=== PATIENT | male | born 2000 | race Caucasian/White ===

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

== ENCOUNTER 2020-04-26 14:05 | Outpatient (CLI) | payer OTHER, SELFPAY ==
--- NOTE | 2020-04-26 14:00 | DI.RAD_ITS ---
EXAM: XR FOOT LT LIMITED CLINICAL HISTORY: f/u L foot cyst TECHNIQUE: COMPARISON: No exams were available for comparison FINDINGS: Two views were obtained. Bony alignment appears within normal limits. No focal bony abnormality see n. Question mild soft tissue swelling of the dorsum of the foot, please correlate clinically. IMPRESSION:
== END 2020-04-26 14:25 ==
PROVIDERS: PCP Pediatrics; Referring Provider Pediatrics; Visit Provider Student in an Organized Health Care Education/Training Program
DX: M67.472 Ganglion, left ankle and foot (principal)
CPT/HCPCS: 73620

== ENCOUNTER 2020-08-23 02:40 | Outpatient (CLI) | payer OTHER, SELFPAY ==
[2020-08-25 05:07] LABS: Patient Race White; SARS-CoV-2 RNA Undetected (Undetected); SARS-CoV-2 Specimen Source Nasal
== END 2020-08-23 03:00 ==
PROVIDERS: PCP Pediatrics; Visit Provider Pediatrics
DX: Z20.828 Contact with and (suspected) exposure to other viral communicable diseases (principal)
CPT/HCPCS: U0003

== ENCOUNTER 2020-10-01 03:34 | Outpatient (CLI) | payer OTHER, SELFPAY ==
[2020-10-02 15:33] LABS: COVID-19 RT-PCR UVMMC Result Negative (Negative)
== END 2020-10-01 03:54 ==
PROVIDERS: PCP Pediatrics; Visit Provider Student in an Organized Health Care Education/Training Program
DX: Z11.52 Encounter for screening for COVID-19 (principal); Z01.818 Encounter for other preprocedural examination
CPT/HCPCS: U0003

== ENCOUNTER 2020-10-05 06:07 | Day surgery (SDC) | payer OTHER, SELFPAY ==
[2020-10-05] VITALS (7 sets, daily range): BP systolic 87–143; BP diastolic 32–95; PULSE 72–97; RESP 17–19; TEMP 36.3–37.1; O2SAT 97–100
--- NOTE | 2020-10-05 07:11 | HPE_ITS ---
Date of service: 10/05/20 Time of Service: 07:11 Assessment and Plan Assessment and plan (1) Mass of left foot: Status: Acute Assessment and plan: Roshan is a 20-year-old who has a large mass of the dorsum of the left foot. Is benign in all aspects except for its large size. Given large size, impedance with shoe wear, and continued growth, recommend excisional biopsy. Reviewed the technical details of this with Roshan. I also reviewed the risk to include, infection, stiffness, damage to nerves and vessels, damage to muscles and tendons. There is also the chance of recurrence although that exact likelihood is unknown until we have formal diagnosis. There is also a chance to return to the OR for repeat procedures based on the mass identification. After a review of all this, Roshan elected to proceed. History of Present Illness History of Present Illness Chief Complaint: Left Foot Mass Narrative: Roshan is a 20-year-old who is having no back to the left foot remain years. He thinks this started he was 4 to 5 years old and pediatric. He saw him in the office the summer where a superficial large mass was appreciated on the dorsum of the left foot. Given its size, I recommended excisional biopsy. He does report that he thinks has gotten larger since the last visit. Otherwise it has not changed since the last appointment. He denies any skin lesions skin defects or discoloration. He denies any weight loss, fever, or chills. He denies any other masses elsewhere on his body. He has had no recent sick contacts. COVID- 19 negative. He denies chest pain shortness of breath. Review of Systems All systems reviewed & are unremarkable except as noted in HPI and below PFSH Medical History Appendicitis, acute (~04/2015) ruptured with abscess formation and drain placement and antibiotic rx GERD (gastroesophageal reflux disease) Raynauds disease eval and told not raynaud's -related to light bite injury Surgical History Appendectomy with rupture and postoperative infection adn IV antibitics and percutaneous drain placemtn Tonsillectomy and adenoidectomy Family History Mother Healthy adult Father Essential hypertension Hyperlipidemia Other No problems noted. Social History Smoking/Tobacco Use Status: Never Smoking risk assessment performed?: Yes Alcohol Intake: never Drug use: Never Substance use type: does not use Do you feel safe at home: Yes Do you feel safe in your relationship?: Yes Meds Home Medications and Allergies Home Medications Medication Instructions Recorded Confirmed Type ibuprofen 600 mg tablet 600 mg PO TID #60 tab 08/14/18 10/05/20 Rx Allergies Allergy/AdvReac Type Severity Reaction Status Date / Time No Known Allergies Allergy Verified 10/05/20 06:32 Exam Const General: cooperative, healthy appearing, comfortable and no acute distress Nutritional Appearance: overweight Orientation: alert, awake and oriented x3 Resp Auscultation: clear to auscultation bilaterally Cardio Rate: regular rate Rhythm: regular rhythm Extrem Other: There is a large mass noted to the dorsum of the left foot. The borders are well-defined. It is highly mobile and does not move with underlying extensor tendon. Light touch over the superficial and deep peroneal nerve and tibial nerve is intact. No overlying skin changes. No redness or irritation. No skin discoloration. Full range of motion of the ankle and toes Results Last Vital Signs Temp 37.1 C 10/05/20 06:15 Pulse 97 H 10/05/20 06:15 Resp 17 10/05/20 06:15 BP 143/95 H 10/05/20 06:15 Pulse Ox 100 10/05/20 06:15
[2020-10-05] MEDS: Lactated Ringers 1,000 ML 30 ML IV (07:20)
[2020-10-05] MEDS: ceFAZolin 2 GM/50 ML BAG IVPB (07:30)
--- NOTE | 2020-10-05 07:32 | W.PM.DSUDISC ---
Discharge Plan Disposition Patient Disposition: HOME Condition: Good Discharge Details Reason For Visit: Left Foot Ganglion Cyst removal Attending Provider: Carmelo Thomas Primary Care Provider: Hussein Godwin Home Meds and New Rx's Prescriptions: New ibuprofen 600 mg tablet 600 mg PO TID Qty: 90 RF: 0 hydrocodone-acetaminophen 5-325 mg tablet 1 tab PO Q6H PRNQty: 5 RF: 0 acetaminophen 500 mg tablet 500 mg PO Q6H PRN PRN (Reason: pain) Qty: 40 RF: 3 Discontinued ibuprofen 600 mg tablet 600 mg PO TID Qty: 60 RF: 0 Discharge Instructions Additional Instructions: Activity: You may weight bear as tolerated. You should keep the leg elevated as much as possible. You may wiggle your toes and move your hip and knee. You should wear the post-op shoe when you are up and mobilizing, but may remove it when not. You may apply ice on top of the foot. Dressings: You should keep the initial dressing on for at least 3 days. After 3 days, you may remove it and get it wet in the shower. You should keep it covered with a light gauze and a compressive wrap until follow-up. Keeping some compression is important to minimize swelling and hematoma formation. Medications: - You should take Tylenol and Ibuprofen around the clock for baseline pain. - You have been prescribed a stronger narcotic, Hydrocodone, for breakthrough pain. Follow-up: 10-14 days Stand Alone Forms: DSU Post op Instructions Referrals: Carmelo Thomas MD [ [facility] STAFF PHYSICIAN] - Activity:: Activity as Tolerated Remove Dressings/Wound Care:: 72 hours Shower/Bathe:: 72 hours Diet:: As Tolerated Discharge Orders Discharge Orders: Discharge Order (Routine); Ordered 10/05/20 Ordered By: Aure Galvin DS: Diagnosis Discharge Diagnosis (1) Mass of left foot: Status: Acute
--- NOTE | 2020-10-05 07:34 | W.PM.DSUDISC ---
Documented by User: ANTONIETA Lanza 10/05/20 07:40 Discharge Plan Disposition Patient Disposition: HOME Condition: Good Discharge Details Reason For Visit: Left Foot Ganglion Cyst removal Attending Provider: Carmelo Thomas Primary Care Provider: Hussein Godwin Home Meds and New Rx's Prescriptions: New ibuprofen 600 mg tablet 600 mg PO TID Qty: 90 RF: 0 hydrocodone-acetaminophen 5-325 mg tablet 1 tab PO Q6H PRNQty: 5 RF: 0 acetaminophen 500 mg tablet 500 mg PO Q6H PRN PRN (Reason: pain) Qty: 40 RF: 3 Discontinued ibuprofen 600 mg tablet 600 mg PO TID Qty: 60 RF: 0 Discharge Instructions Additional Instructions: Activity: You may weight bear as tolerated. You should keep the leg elevated as much as possible. You may wiggle your toes and move your hip and knee. You should wear the post-op shoe when you are up and mobilizing, but may remove it when not. You may apply ice on top of the foot. Dressings: You should keep the initial dressing on for at least 3 days. After 3 days, you may remove it and get it wet in the shower. You should keep it covered with a light gauze and a compressive wrap until follow-up. Keeping some compression is important to minimize swelling and hematoma formation. Medications: - You should take Tylenol and Ibuprofen around the clock for baseline pain. - You have been prescribed a stronger narcotic, Hydrocodone, for breakthrough pain. Follow-up: 10-14 days Stand Alone Forms: DSU Post op Instructions Referrals: Carmelo Thomas MD [ [facility] STAFF PHYSICIAN] - Activity:: Activity as Tolerated Remove Dressings/Wound Care:: 72 hours Shower/Bathe:: 72 hours Diet:: As Tolerated Discharge Orders Discharge Orders: Discharge Order (Routine); Ordered 10/05/20 Ordered By: Aure Galvin Discharge Data Discharge Date/Time-TO BE ENTERED AT DEPARTURE: 10/05/20 10:47 DS: Diagnosis Discharge Diagnosis (1) Mass of left foot: Status: Acute Documented by User: Carmelo Thomas MD 10/06/20 13:48 Discharge Plan Disposition Patient Disposition: HOME Condition: Good Discharge Details Reason For Visit: Left Foot Ganglion Cyst removal Attending Provider: Carmelo Thomas Primary Care Provider: Hussein Godwin Home Meds and New Rx's Prescriptions: New ibuprofen 600 mg tablet 600 mg PO TID Qty: 90 RF: 0 hydrocodone-acetaminophen 5-325 mg tablet 1 tab PO Q6H PRNQty: 5 RF: 0 acetaminophen 500 mg tablet 500 mg PO Q6H PRN PRN (Reason: pain) Qty: 40 RF: 3 Discontinued ibuprofen 600 mg tablet 600 mg PO TID Qty: 60 RF: 0 Discharge Instructions Additional Instructions: Activity: You may weight bear as tolerated. You should keep the leg elevated as much as possible. You may wiggle your toes and move your hip and knee. You should wear the post-op shoe when you are up and mobilizing, but may remove it when not. You may apply ice on top of the foot. Dressings: You should keep the initial dressing on for at least 3 days. After 3 days, you may remove it and get it wet in the shower. You should keep it covered with a light gauze and a compressive wrap until follow-up. Keeping some compression is important to minimize swelling and hematoma formation. Medications: - You should take Tylenol and Ibuprofen around the clock for baseline pain. - You have been prescribed a stronger narcotic, Hydrocodone, for breakthrough pain. Follow-up: 10-14 days Stand Alone Forms: DSU Post op Instructions Referrals: Carmelo Thomas MD [ [facility] STAFF PHYSICIAN] - Activity:: Activity as Tolerated Remove Dressings/Wound Care:: 72 hours Shower/Bathe:: 72 hours Diet:: As Tolerated Discharge Orders Discharge Orders: Discharge Order (Routine); Ordered 10/05/20 Ordered By: Aure Galvin Discharge Data Discharge Date/Time-TO BE ENTERED AT DEPARTURE: 10/05/20 10:47
[2020-10-05] MEDS: Bupivacaine 0.25% Pres-Free 30 ML VIAL (07:58)
--- NOTE | 2020-10-05 08:20 | SOFT_PTH ---
PATIENT: Roshan Crump LOC: [facility] U#:[id number] AGE/SX: 20/M ROOM: RE10/05/[address]: Carmelo Thomas MD : 2000 BED: DIS: 10/05/2020 SPEC #: [id number] RECD: 10/05/20 12:07 STATUS: SAADIA REYu #: [id number] DOREEN: 10/05/20 08:[address]: Carmelo Thomas DEPT: Surgical Specimen RECD BY: Denise Owen ENTERED: 10/05/20 12:08 SP TYPE: SOFT OTHR DR: Hussein Godwin MD Tissues: 1 - SOFT TISSUE MISC (INC. LIPOMA) Procedures: GROSS AND MICRO LEVEL 4 IMMUNOPEROXIDASE STAIN Comments: [id number]
[2020-10-05] MEDS: oxyCODONE 5 MG TAB PO (09:37)
--- NOTE | 2020-10-06 06:05 | ROE_ITS ---
Date of service: 10/05/20 Time of Service: 08:29 Operative Note Operative Note DATE OF PROCEDURE: 10/05/20 PRE-OP DIAGNOSIS: Left foot mass POST-OP DIAGNOSIS: same PROCEDURE: Excisional biopsy of left foot mass SURGEON: Carmelo Thomas ANESTHESIA: AMY ESTIMATED BLOOD LOSS: 5 PATHOLOGY: other (Large irregular shaped solid mass sent to pathology) TOURNIQUET TIME: 30 COMPLICATIONS: None Patient was transported to: PACU Patient's condition: stable Indications: Roshan is a 20-year-old who I saw earlier this year for a growing left foot mass. He reports his masses been present since he was a kid, 4 or 5 years old. It was painless except for its size. He feels that it was getting bigger and now is preventing him from wearing shoes in a normal fashion. Although it was quite large it was superficial, circumscribed with his borders, and mobile. There are no other red flag symptoms it was deemed to likely be a benign tumor or cyst. I offered excisional biopsy of the mass. I discussed the risk of the procedure to include bleeding, infection, pain, stiffness, recurrence, need for repeat procedures, damage to nerves and vessels. Despite these risk, he elected to proceed. Findings: There is a very large and irregular solid mass discovered over the dorsum of the left foot. It was much larger than appreciated by palpation alone. Extension of the mass went to the base of the third toe and over to the anterior aspect of the ankle. It had no invasive qualities to it but it was ad herent to the surrounding tissue. This fleshlike colored mass was solid. I removed as much as possible but there were some extension of the mass and almost like satellite lesions laterally and medially as well as a cordlike structure encountered laterally. This mass was sent to pathology. Procedure Description: Roshan was greeted in the preoperative holding area. His identity was confirmed. The correct side was identified and marked. The consent was reviewed the patient and signed. The history and physical was updated. Roshan was taken to the operating room. Prophylactic antibiotics in the form of cefazolin were administered. A uninstrumented general anesthesia was administered. The left leg was then prepped with ChloraPrep and draped in standard fashion after placing a calf tourniquet. A timeout was performed for safe surgery. Left leg was then exsanguinated and the tourniquet was inflated to 250 mmHg. A 6 cm incision was then made overlying the mass roughly in line with the 3?4 intermetatarsal space. The skin was incised sharply and the deeper dissection was carried down with the Metzenbaum scissors. There is no appreciable branches of the superficial peroneal nerve. However, the mass was quite present. It had a flesh-colored appearance and was obviously not a cyst. There was a covering to it which was incised allowing deeper dissection. However, there was no true casing as expected with a lipoma or a ganglion cyst. The mass was very irregular in shape and was loosely attached to surrounding surfaces including the skin, overlying nerves, underlying tendons and fascia. It did not invade any of the deep spaces. I first worked distally freeing up the mass. This went all the way down to the base of the third toe. With both blunt dissection and slow release of adhesions I was able to remove the distal aspect of the mass from the foot. Then working distally I once again freed it up mostly with blunt dissection but also the use of scissors for any attachments. There was significant adherence to some underlying structures which were likely was at least one branch of the superficial peroneal nerve. I was unable to tease it away completely. However this 1 release allow me to remove the remainder of the mass in whole. This mass tracked all the way to the anterior ankle. Cells able to remove this in whole this was taken of the back table and prepared to be sent to pathology. I then inspected the bed of resection and found that there was 2 satellite type lesions. They were not directly connected to the main lesion that I could tell. One was proximal and medial. I was able to remove this mostly with blunt dissection after entering into the encasement. Additionally, there is a few small fibrofatty particles left behind which were removed with a rongeur. Additionally, there is a cordlike structure palpated laterally, again, not directly related to the primary mass. However, it was outside of the field of dissection but still had a cordlike structure which was concerning for residual mass but in brief evaluation appear to be swollen branch of the superficial peroneal nerve. At this point, given that this mass was much larger and much more involved and I had planned, I did not increase dissection and left this cord structure as it is given that it was not clearly a part of the mass. I then thoroughly irrigated the tissues of the foot. Any remnant material was removed. The tissues were injected with 0.25% ropivacaine. The tourniquet was released. There is no significant bleeding. The wound was closed with 3-0 Vicryl followed by 4-0 Monocryl. The wound was dry and skin affix skin glue was applied. Mepilex silver dressing was placed over the foot followed by compressive wrap of Kerlix and an Johnny. He was placed into a postop shoe. At the end the case all counts were correct and he tolerated the procedure well. He is transferred back to the PACU in stable condition. The mass was sent to pathology.
== END 2020-10-05 10:47 | disposition home or self-care (01) ==
PROVIDERS: PCP Pediatrics; Visit Provider Student in an Organized Health Care Education/Training Program
PROC: (CPT 28039; principal; 2020-10-05 07:30)
DX: D17.24 Benign lipomatous neoplasm of skin and subcutaneous tissue of left leg (principal); K21.9 Gastro-esophageal reflux disease without esophagitis
CPT/HCPCS: 28039; 88305; 88304; 88361; J0690; J1885; J2405; J2704

== ENCOUNTER 2022-07-04 05:34 | Emergency (ER) | payer OTHER, SELFPAY ==
[2022-07-04 05:37] VITALS: BP 147/91; PULSE 100; RESP 18; TEMP 36.4; O2SAT 99
--- NOTE | 2022-07-04 06:00 | DI.CT_ITS ---
Exam(s) CT ABDOMEN PELVIS CTA EXAM: CT ABDOMEN PELVIS CTA CLINICAL HISTORY: diffuse abd pain, vomiting. TECHNIQUE: Imaging Protocol: Axial CT angiography was performed with multi-slice acquisition and m ulti-planar and/or 3D reconstructions. CONTRAST MATERIAL: Intravenous: Omnipaque 350 Contrast volume:100mL Oral: No COMPARISON: CT ABD PELVIS WITH CONTRAST from 08/14/2016 FINDINGS: ABDOMEN AND PELVIS: Abdomen: Celiac axis/mesenteric arteries: No evidence of occlusion or significant stenosis. Renal Arteries: No evidence of occlusion or significant stenosis. There is a single renal artery perf using each kidney. Aorta: No evidence of occlusion or significant stenosis. No aneurysm or dissection. Pelvis: Iliac Arteries: No evidence of occlusion or significant stenosis. Common Femoral Arteries: No evidence of occlusion or significant stenosis. ABDOMEN: Lung bases: Unremarkable. Liver: There is diffuse decreased attenuation of the liver suggesting fatty infiltration. The liver measures 25 cm long. No measurable mass. Portal, Superior Mesenteric, and Splenic Veins: Unremarkable. Gallbladder and Biliary Tract: No radiodense calculus or dilation. Pancreas: Normal density, no abnormal calcifications or inflammatory process. Spleen: Normal. Adrenals: No masses seen. Kidneys: Normal size, contour and axis. No radiodense stones or obstructive uropathy. No masses seen. Bowel: No obstruction or bowel wall thickening. No evidence of appendicitis. Peritoneal Cavity: No ascites, collection or mesenteric inflammatory response. No free air. Lymph Nodes: Mildly prominent lymph nodes are seen in the mesentery and right lower quadrant. Bones: Within normal limits for the patient's age. Soft Tissues: Unremarkable. PELVIS: Bladder: Symmetric distention, no gross wall thickening. Reproductive Organs: Unremarkable as visualized. Lymph Nodes: Within normal limits. Bones: Within normal limits. IMPRESSION: 1. Unremarkable CT angiography of the abdomen and pelvis. 2. Hepatomegaly and hepatic steatosis. 3. Mildly prominent lymph nodes in the mesentery and right lower quadrant. This can be seen with mes enteric adenitis or a mild enteritis. Please correlate clinically. RADIATION DOSE DELIVERED: 1,132.72mGy.cm Total DLP DATA REPOSITORY: All CT scans at this facility are submitted to the National Radiology Data Registry (NRDR) Dose Index Registry (DIR) with the [employer] ([employer]). RADIATION OPTIMIZATION: All CT scans at this facility use at least one of these dose optimization te chniques: automated exposure control; mA and/or kV adjustment per patient size (includes targeted exa ms where dose is matched to clinical indication); or iterative reconstruction.
--- NOTE | 2022-07-04 06:03 | ED.GENADUL_ITS ---
Discharge Plan Disposition Patient Disposition: HOME Condition: Stable Discharge Details Clinical Impression: Diarrhea, Abdominal pain Primary Care Provider: Unknown,Unknown ED Provider: Denise Beasley Home Meds and New Rx's Prescriptions: New dicyclomine 20 mg tablet 20 mg PO QID Qty: 14 0RF Continued ibuprofen 600 mg tablet 600 mg PO TID Qty: 90 0RF acetaminophen 500 mg tablet 500 mg PO Q6H PRN PRN (Reason: pain) Qty: 40 3RF Discharge Instructions Instructions: Acute Diarrhea (ED), Abdominal Pain (ED) Additional Instructions: Take ibuprofen and Tylenol as needed for discomfort Take Bentyl for cramping pain This may make you constipated so if you start experiencing some constipation uses discontinue this medication Recheck in 24 to 48 hours with your primary care physician and earlier return should you have new or worsening complaints Discharge Data Discharge Date/Time-TO BE ENTERED AT DEPARTURE: 07/04/22 08:56 Medical Decision Making 0545 -- 21-year-old male with a history of morbid obesity, appendectomy presents for diarrhea and lower abdominal pain for 2 weeks now with vomiting and upper abdominal pain with radiation to his back since midnight. Blood pressure hypertensive at 147/91. Heart rate 100. He is afebrile. Patient appears uncomfortable. His abdomen is soft but he is obese. He has diffuse tenderness. There are no obvious pulsatile masses. Differential diagnosis includes small bowel obstruction, gastroenteritis, colitis. Also consider AAA. Will obtain screening labs, CT abdomen pelvis and give IV Tylenol, IV Zofran, fluid bolus and reassess. 0800 --labs reviewed and unremarkable. Normal white blood cell count. CT reviewed and no obvious aortic dissection but final read pending. Case endorsed to ANTONIETA Beasley to follow-up on CT results and final disposition. HPI General Mode of arrival: ambulatory . Date/Time Provider Initiated Documentation: 07/04/22 06:01 . Limitations to Documentation: no limitations . Information obtained by: patient . HPI Narrative: Pt is a 21yo M with a history of appendectomy and tonsillectomy who presents for lower abdominal pain and diarrhea for the past 2 weeks now with vomiting and u pper abdominal pain since midnight. Patient states he has been having approximately 5 episodes of loose brown diarrhea occurring daily for the past 2 weeks. He states his abdominal pain has been lower and crampy when he has the diarrhea. He states since midnight he has been vomiting multiple times which is mainly been orange and now has upper abdominal pain. Patient states the pain radiates to his back. He states he ate squash last night. He took Tums without relief. He denies any fever, chest pain, shortness of breath, urinary symptoms. Related Data Home Medications Medication Instructions Recorded Confirmed acetaminophen 500 mg tablet 500 mg PO Q6H PRN PRN pain #40 tabs 10/05/20 07/04/22 ibuprofen 600 mg tablet 600 mg PO TID #90 tabs 10/05/20 07/04/22 dicyclomine 20 mg tablet 20 mg PO QID #14 tabs 07/04/22 Previous Rx's Medication Instructions Recorded acetaminophen 500 mg tablet 500 mg PO Q6H PRN PRN pain #40 tabs 10/05/20 ibuprofen 600 mg tablet 600 mg PO TID #90 tabs 10/05/20 dicyclomine 20 mg tablet 20 mg PO QID #14 tabs 07/04/22 Allergies Allergy/AdvReac Type Severity Reaction Status Date / Time No Known Allergies Allergy Verified 07/04/22 05:43 General Stated Complaint: Nausea/Vomit/Diar KIA: 3 Review of Systems All systems reviewed & are unremarkable except as noted in HPI and below Constitutional Constitutional: Reports as per HPI, Denies chills and Denies fever(s) Eyes Eyes: Denies blurry vision ENT Ears, Nose, Mouth, and Throat: Denies dizziness, Denies sore throat and Denies throat swelling Cardiovascular Cardiovascular: Denies chest pain and Denies dyspnea Respiratory Respiratory: Denies cough and Denies dyspnea Gastrointestinal Gastrointestinal: Reports abdominal pain, Reports diarrhea, Reports nausea and Reports vomiting Genitourinary Genitourinary: Denies hematuria and Denies dysuria Musculoskeletal Musculoskeletal: Denies back pain and Denies numbness Integumentary/Breasts Skin/Breast: Denies lesions and Denies rash Neurologic Neurologic: Denies dizziness, Denies localized weakness and Denies numbness Allergic/Immunologic Allergic/Immunologic: Denies throat swelling PFSH All Active Problems (Updated 07/04/22 @ 08:42 by ANTONIETA Anderson) Diarrhea (Acute) Abdominal pain (Acute) Status post excisional biopsy (Acute 10/05/20) Lipoma of left foot/ankle Lipoma of extremity (Acute) left foot/ankle Mass of left foot (Acute) Healthy adult (Acute) Cyst (Acute) ? cyst on dorsum of foot _ ORTHO 04/12 Ganglion cyst of left foot (Acute) Medical History Appendicitis, acute (~04/2015) ruptured with abscess formation and drain placement and antibiotic rx GERD (gastroesophageal reflux disease) Raynauds disease eval and told not raynaud's -related to light bite injury Surgical History Appendectomy with rupture and postoperative infection adn IV antibitics and percutaneous drain placemtn Tonsillectomy and adenoidectomy Family History Mother Healthy adult Father Essential hypertension Hyperlipidemia Other No problems noted. Social History Smoking/Tobacco Use Status: Never Smoking risk assessment performed?: Yes Alcohol Intake: current Alcohol Intake frequency: a few times a week Alcohol type: beer Drug use: Never Substance use type: does not use Do you feel safe at home: Yes Do you feel safe in your relationship?: Yes Exam Const General: cooperative and uncomfortable Orientation: alert, awake and oriented x3 HENMT Head: normal to inspection Face and sinus: normal facial exam Eyes General: appearance normal, both eyes and all related structures EOM: EOM intact bilaterally Neck Neck: normal visual inspection and No submandibular swelling Lymphatic: no lymphadenopathy noted Chest Chest: normal inspection of the chest and no tenderness Resp Effort & Inspection: normal respiratory effort and able to speak in complete sentences Auscultation: clear to auscultation bilaterally Cardio Rate: regular rate Rhythm: regular rhythm GI Inspection: normal to inspection, non-distended and obesity Palpation: soft, not firm, not rigid and tender (diffuse) Auscultation: hypoactive bowel sounds Male General Exam: Yes normal external exam Skin General skin exam: no rashes or lesions noted Neuro General: patient alert, patient awake and patient oriented x3 Cognition: normal cognition Speech: speech normal Motor: muscle tone normal throughout Sensory Exam: no sensory deficits noted Extrem General: normal to inspection, full ROM, capillary refill normal, no calf tenderness bilaterally and no edema Psych Appearance: grossly normal Mental Status: mental status grossly normal Speech and Movement: speech and movement normal Affect: normal affect Course Vital Signs Vital signs: Vital Signs Temperature 97.5 F L 07/04/22 05:37 Pulse 100 H 07/04/22 05:37 Respiratory Rate 18 07/04/22 05:37 Blood Pressure 147/91 H 07/04/22 05:37 Pulse Oximetry 99 07/04/22 05:37 Temperature 97.5 F L 07/04/22 05:37 Temperature Source Skin 07/04/22 05:37 Pulse 100 H 07/04/22 05:37 Respiratory Rate 18 07/04/22 05:37 Respiratory Effort 07/04/22 05:41 Blood Pressure 147/91 H 07/04/22 05:37 Blood Pressure Position Supine 07/04/22 05:37 Pulse Oximetry 99 07/04/22 05:37 Oxygen Delivery Method Room Air 07/04/22 05:37 Oxygen Flow Rate 0 07/04/22 05:37 Pain Level 8 07/04/22 05:37 Comment 07/04/22 05:37 Sign Out Sign Out Data: Sign Out Comment: Diarrhea and lower abdominal pain for 2 weeks, vomiting and upper abdominal pain since last night. Follow-up on CT. If negative and patient feels better, can discharge to home. Last updated by Cristine Linares DO at 07/04/22 07:52
[2022-07-04 06:08] LABS: Abs Immature Grans 0.07 10^3/uL (0.0-0.06); Absolute Basophil Count 0.05 10^3/uL (0.0-0.2); Absolute Lymphocyte Count 2.28 10^3/uL (1.2-3.4); Absolute Monocyte Count 0.52 10^3/uL (0.1-0.8); Absolute Neutrophil Count 5.86 10^3/uL (1.2-6.7); Basophils % 0.6; Eosinophils % 1.1; HGB 16.5 g/dL (13.5-17.5); Immature Grans % 0.8; Lymphocytes % 25.7; MCH 28.2 pg (27.0-33.0); MCHC 33.7 % (32.0-36.0); MCV 84 fL (80-95); MPV 9.5 fL (8.0-11.0); Monocytes % 5.9; Neutrophils % 65.9; Platelet Count 319 10^3/uL (130-400); RBC 5.86 10^6/uL (4.36-5.78); RDW 12.6 % (11.8-14.1); WBC 8.88 10^3/uL (4.4-10.8)
[2022-07-04] MEDS: Normal Saline 1,000 ML 1000 ML IV (06:08)
[2022-07-04] MEDS: Ondansetron 4 MG/2 ML VIAL IVP (06:18)
[2022-07-04] MEDS: ACETAMINOPHEN 1,000 MG/100 ML BTL 400 MG IVPB (06:19)
[2022-07-04] MEDS: Omnipaque 350 MG/ML 100 ML BTL IJ (06:26)
[2022-07-04 06:34] LABS: ALT 85 U/L (16-63); AST 28 U/L (15-37); Albumin 4.2 g/dL (3.4-5.0); Alkaline Phosphatase 59 U/L (46-116); Anion Gap 8.4 mmol/L (3-11); BUN 15 mg/dL (7-18); Bilirubin, Total 0.5 mg/dL (0.2-1.0); CO2 29.6 mmol/L (21.0-32.0); CREATININE 0.8 mg/dL (0.70-1.30); Chloride 100 mmol/L (98-107); Estimated GFR 128.33 (mL/min/1.73m2); Glucose 130 mg/dL (74-106); Lipase 131 U/L (73-393); Potassium 4.5 mmol/L (3.5-5.1); Sodium 138 mmol/L (136-145); Total Protein 8.2 g/dL (6.4-8.2)
[2022-07-04] MEDS: Ketorolac 30 MG/ML VIAL IVP (07:41)
--- NOTE | 2022-07-04 08:20 | DI.VRAD_ITS ---
PROCEDURE INFORMATION: Exam: CTA Abdomen and Pelvis With Contrast Exam date and time: 07/04/2022 6:42 AM Age: 21 years old Clinical indication: Other: Diffuse abdominal pain, vomitting R/O aaa, sbo, gastroenteritis, colitis TECHNIQUE: Imaging protocol: Computed tomographic angiography of the abdomen and pelvis with contrast. 3D rendering (Not supervised by radiologist): MIP and/or 3D reconstructed images were created by the technologist. Radiation optimization: All CT scans at this facility use at least one of these dose optimization techniques: automated exposure control; mA and/or kV adjustment per patient size (includes targeted exams where dose is matched to clinical indication); or iterative reconstruction. Contrast material: OMNIPAQUE 350; Contrast volume: 100 ml; Contrast route: INTRAVENOUS (IV); COMPARISON: CT ABD PELVIS WITH CONTRAST 08/14/2016 2:38 PM FINDINGS: Aorta: No aortic aneurysm. No aortic dissection. Celiac trunk and mesenteric arteries: No occlusion or significant stenosis. Renal arteries: No occlusion or significant stenosis. Right iliac arteries: No occlusion or significant stenosis. Left iliac arteries: No occlusion or significant stenosis. Liver: No mass. Hepatomegaly and diffuse fatty infiltration Gallbladder and bile ducts: Unremarkable. No calcified stones. No ductal dilation. Pancreas: Unremarkable. No mass. No ductal dilation. Spleen: Unremarkable. No splenomegaly. Adrenal glands: Unremarkable. No mass. Kidneys and ureters: Unremarkable. No solid mass. No hydronephrosis. Stomach and bowel: No obstruction. Question mild mucosal thickening. Fluid level/liquid stool in the colon Appendix: Prior appendectomy Intraperitoneal space: Unremarkable. No free air. No significant fluid collection. Lymph nodes: Prominent mesenteric lymph nodes. Urinary bladder: Unremarkable. No mass. Reproductive: Unremarkable as visualized. Bones/joints: No acute fracture. Soft tissues: Unremarkable. IMPRESSION: Unremarkable CTA. Nonspecific nonobstructed bowel gas pattern. Correlate for mild enteritis/adenitis/diarrheal disease Fatty infiltration of the liver Dictated and Authenticated by: Alber Novoa MD. Ordering:DEAN Colunga MD
[2022-07-04 08:57] VITALS: BP 134/73; PULSE 98; RESP 16; TEMP 36.4; O2SAT 98
--- NOTE | 2022-07-04 11:09 | W.EDPROG ---
Date of service: 07/04/22 Time of Service: 11:11 Medical Decision Making LAB: 800 care transitioned to wy pending ct abd/pelvis possible enteritis per vrad interpretation pt reports improvement in symptoms will f/u with pcp regarding mild elevated in ALT bentyl for comfort return precautions reviewed with pt and dc'd in stable condition Sign Out Sign Out Data: Sign Out Comment: Diarrhea and lower abdominal pain for 2 weeks, vomiting and upper abdominal pain since last night. Follow-up on CT. If negative and patient feels better, can discharge to home. Last updated by Cristine Linares DO at 07/04/22 07:52 Discharge Plan Disposition Patient Disposition: HOME Condition: Stable Discharge Details Clinical Impression: Diarrhea, Abdominal pain Primary Care Provider: Unknown,Unknown ED Provider: Denise Beasley Home Meds and New Rx's Prescriptions: New dicyclomine 20 mg tablet 20 mg PO QID Qty: 14 0RF Continued ibuprofen 600 mg tablet 600 mg PO TID Qty: 90 0RF acetaminophen 500 mg tablet 500 mg PO Q6H PRN PRN (Reason: pain) Qty: 40 3RF Discharge Instructions Instructions: Acute Diarrhea (ED), Abdominal Pain (ED) Additional Instructions: Take ibuprofen and Tylenol as needed for discomfort Take Bentyl for cramping pain This may make you constipated so if you start experiencing some constipation uses discontinue this medication Recheck in 24 to 48 hours with your primary care physician and earlier return should you have new or worsening complaints
== END 2022-07-04 08:56 | disposition home or self-care (01) ==
PROVIDERS: Physician Assistant; Emergency Provider Physician Assistant
DX: R10.10 Upper abdominal pain, unspecified (principal); R19.7 Diarrhea, unspecified; R10.30 Lower abdominal pain, unspecified; R03.0 Elevated blood-pressure reading, without diagnosis of hypertension; E66.9 Obesity, unspecified
CPT/HCPCS: 36415; 80053; 83690; 96361; 96374; 96375; 99285; 74174; 85025; 99284; J0131; J1885; J2405; J3490

== ENCOUNTER 2022-10-23 10:40 | Emergency (ER) | payer OTHER, SELFPAY ==
[2022-10-23] VITALS (9 sets, daily range): BP systolic 125–157; BP diastolic 64–125; PULSE 82–93; RESP 13–24; TEMP 36.7; O2SAT 97–99
--- NOTE | 2022-10-23 11:00 | DI.CT_ITS ---
Exam(s) CT HEAD CERVICAL SPINE WO EXAM: CT HEAD CERVICAL SPINE WO CLINICAL HISTORY: fall, HI, neck pain. TECHNIQUE: Imaging Protocol: Axial computed tomography images with coronal and sagittal reformatted images were created and reviewed COMPARISON: No exams were available for comparison FINDINGS: CT Head: Ventricles and Extra axial spaces: Normal in size and morphology for the patient's age. Hemorrhage: None. Cerebral parenchyma: There is no evidence of an acute territorial infarct. There is a normal meyer-wh ite matter differentiation. Midline shift: None. Brainstem/Cerebellum: Normal. Calvarium: Normal. Visualized Paranasal sinuses/Mastoids: There is mucosal thickening in the maxillary sinuses and ethmo id air cells. No fluid levels are seen. The mastoid air cells are clear. Soft Tissues: Unremarkable. CT Cervical Spine: Bones: No acute fracture or subluxation. There is straightening of the normal cervical lordosis. Thi s may be due to muscle spasm or patient positioning. Soft Tissues: Unremarkable. Lung Apices: Clear. IMPRESSION: 1. No acute intracranial process. 2. No acute fracture or subluxation in the cervical spine. 3. Findings were discussed with the emergency department at 12:01 p.m. on 10/23/2022. RADIATION DOSE DELIVERED: 1,877.01mGy.cm Total DLP DATA REPOSITORY: All CT scans at this facility are submitted to the National Radiology Data Registry (NRDR) Dose Index Registry (DIR) with the [employer] (ACR). RADIATION OPTIMIZATION: All CT scans at this facility use at least one of these dose optimization te chniques: automated exposure control; mA and/or kV adjustment per patient size (includes targeted exa ms where dose is matched to clinical indication); or iterative reconstruction.
[2022-10-23] MEDS: Ondansetron O.D.T. 4 MG TABEF PO (12:32)
[2022-10-23] MEDS: Acetaminophen 325 MG TAB 650 MG PO (12:32)
--- NOTE | 2022-10-25 09:19 | W.ED.GENAD ---
Discharge Plan Disposition Patient Disposition: Home Condition: Stable Discharge Details Clinical Impression: Concussion, Cervical strain Primary Care Provider: Halle Daugherty ED Provider: Denise Beasley Home Meds and New Rx's Prescriptions: New ondansetron 4 mg tablet,disintegrating 4 mg PO DAILY 3 Days Qty: 10 0RF Discharge Instructions Instructions: Cervical Strain (ED), Concussion (ED) Additional Instructions: Take ibuprofen and Tylenol as needed for pain Take Zofran as needed for nausea and vomiting Do not operate your vehicle if you feel dizzy, have a terrible headache or nauseous, you likely have a concussion, can take several months for your symptoms to resolve Recommendation to allow brain rest is much as possible please refer to enclosed packet information Do not engage in any contact sports or activities until you are cleared by your doctor Stand Alone Forms: Work Release Discharge Data Discharge Date/Time-TO BE ENTERED AT DEPARTURE: 10/23/22 12:44 Medical Decision Making Patient presents with headache and neck pain after fall, and given worsening symptoms and persistent neck pain, CT head and cervical spine were ordered, CT head and cervical spine per radiology interpretation my review do not show evidence of acute abnormality, neurologically intact, ambulatory with steady gait Given antiemetics for home, tolerates p.o. challenge in the emergency department Suspect concussion Return precautions reviewed and patient expressed understanding Work note supplied Limitations reviewed Discharged home in stable condition with stable neurological exam Medical Records Medical records reviewed: Yes I reviewed the patient's medical records. HPI General Date/Time Provider Initiated Documentation: 10/23/22 11:01. HPI Narrative: This 22-year-old male presents with report of fall with head injury and nausea with head pressure and intermittent blurred vision. He denies any paresthesias to his extremities. He denies any numbness or tingling. He denies any chest pain or shortness of breath. He denies any back pain or abdominal pain. He does report pain to his neck and headache that is worsening. He also fell asleep for approximately hour after the episode but denies any associated loss of consciousness. He is otherwise healthy and denies history of coagulopathy. Related Data Home Medications Medication Instructions Recorded Confirmed ondansetron 4 mg disintegrating 4 mg PO DAILY 3 days #10 tabs 10/23/22 tablet Previous Rx's Medication Instructions Recorded ondansetron 4 mg disintegrating 4 mg PO DAILY 3 days #10 tabs 10/23/22 tablet Allergies Allergy/AdvReac Type Severity Reaction Status Date / Time No Known Allergies Allergy Verified 10/23/22 11:28 General Stated Complaint: Fall/Non TraumaCriteria KIA: 3 PFSH All Active Problems (Updated 10/23/22 @ 12:32 by ANTONIETA Anderson) Concussion (Acute) Cervical strain (Acute) Family history of inflammatory bowel disease (Acute) Fa with IBS-D? IBD? Fa had colo as a young man, [ ] Path? Generalized postprandial abdominal pain (Acute) Mild now, Hx painful episodes with diarrhea.. IBS (irritable bowel syndrome) (Chronic) as a teen, returned last Fall (2021) .. with Hx Fa with IBS-D. ALEXANDRA (obstructive sleep apnea) (Chronic) Medical History (Updated 10/23/22 @ 12:32 by ANTONIETA Anderson) Appendicitis, acute (~04/2015) ruptured with abscess formation and drain placement and antibiotic rx Ganglion cyst of left foot ? cyst on dorsum of foot _ ORTHO 04/12 GERD (gastroesophageal reflux disease) History of ear infections as a child Lipoma of extremity left foot/ankle Raynauds disease eval and told not raynaud's -related to light bite injury Surgical History (Updated 10/19/22 @ 17:29 by Halle Daugherty DO) Appendectomy (~2014) with rupture and postoperative infection adn IV antibitics and percutaneous drain placemtn H/O excision of mass (~2020) Foot mass/growth removal: Dr. Thomas Status post excisional biopsy (10/05/20) Lipoma of left foot/ankle Tonsillectomy and adenoidectomy (~2010) Dr. Lamar Family History (Updated 09/07/22 @ 14:35 by Stephanie Esquivel) Mother Healthy adult Father Essential hypertension Hyperlipidemia Maternal Aunt Substance use disorder Other Breast cancer Social History (Updated 09/07/22 @ 14:30 by Stephanie Esquivel) Smoking/Tobacco Use Status: Never Smoking risk assessment performed?: Yes Alcohol Intake: current Alcohol Intake frequency: a few times a month Alcohol type: beer Drug use: Never Substance use type: does not use Counseling given: No Adopted: No Caregiver/Support person: No Foster care: No Household members: family Housing: house Number of Children: 0 Communication Needs: None Education Level: college Details: bachelor's degree Do you need help understanding health information?: Never current occupation: Patient [employer] Pets and animals: Yes Pets and animals: dog(s) and hamster(s) Sexually active: No Do you think of yourself as: straight/heterosexual Current gender identity: male What is your relationship status?: never How often do you talk on the phone with friends or family?: once per week How often do you get together with friends or relatives?: once per week Do you belong to any clubs or organized social groups?: no Panel score (0-1 are the most socially isolated patients): 0 What type of physical activity do you participate in: none Nelsy/Pentecostal: Jehovah'S Witness Special nelsy needs: No Seatbelt use: always Helmet use: Yes Helmet use: always Drive intox or ride w/intox local city driver: No Do you feel safe at home: Yes Do you feel safe in your relationship?: Yes Exam Const General: cooperative, comfortable and no acute distress Orientation: alert and oriented x3 HENMT Head: normal to inspection Other: Mild tenderness to the occipital region, no crepitus or hematoma, no visible sign of trauma, no hemotympanum Eyes Pupils: PERRL Neck Other: Paraspinal muscle tenderness, mild midline tenderness to the C5-C6 region Resp Effort & Inspection: normal respiratory effort Auscultation: clear to auscultation bilaterally Other: No visible evidence of trauma Cardio Rate: regular rate Rhythm: regular rhythm Other: Distal pulses intact GI Inspection: normal to inspection Other: No CVA tenderness no visible sign of trauma Back/Spine/Pelvis Other: No midline tenderness Skin General skin exam: no rashes or lesions noted Neuro General: patient alert and patient oriented x3 Course Vital Signs Vital signs: Vital Signs Temperature 36.7 C 10/23/22 10:43 Pulse 87 10/23/22 10:43 Respiratory Rate 18 10/23/22 10:43 Blood Pressure 156/89 H 10/23/22 10:43 Pulse Oximetry 99 10/23/22 10:43 Temperature 36.7 C 10/23/22 10:43 Pulse 86 10/23/22 12:33 Pulse 86 10/23/22 11:33 Respiratory Rate 14 10/23/22 12:33 Respiratory Effort Non-Labored 10/23/22 10:47 Blood Pressure 140/76 10/23/22 12:33 Blood Pressure Mean 133 10/23/22 11:33 Pulse Oximetry 98 10/23/22 12:33 Oxygen Delivery Method Room Air 10/23/22 10:43 Oxygen Flow Rate 0 10/23/22 10:43 Lab/Test Results Lab/Test Results: Laboratory Tests Range/Units 10/23/22 10/23/22 10/23/22 11:45 11:45 11:46 WBC Cancelled RBC Cancelled Hgb Cancelled Hct Cancelled MCV Cancelled MCH Cancelled MCHC Cancelled RDW Cancelled Plt Count Cancelled MPV Cancelled Immature Gran % Cancelled Neutrophils % Cancelled Band Neutrophils % Cancelled Lymphocytes % Cancelled Atypical Lymphs % Cancelled Monocytes % Cancelled Eosinophils % Cancelled Basophils % Cancelled Metamyelocytes % Cancelled Myelocytes % Cancelled Promyelocytes % Cancelled Other Cells % Cancelled Nucleated RBC % Cancelled Absolute Neutrophils Cancelled Absolute Lymphocytes Cancelled Absolute Monocytes Cancelled Absolute Eosinophils Cancelled Absolute Basophils Cancelled RBC Morphology Cancelled Polychromasia Cancelled Hypochromasia Cancelled Poikilocytosis Cancelled Basophilic Stippling Cancelled Anisocytosis Cancelled Microcytosis Cancelled Macrocytosis Cancelled Spherocytes Cancelled Tear Drop Cells Cancelled Ovalocytes Cancelled Stomatocytes Cancelled [place] Bodies Cancelled [place] Cells/Echinocytes Cancelled Acanthocytes (Spur) Cancelled Schistocytes Cancelled Sodium Cancelled Potassium Cancelled Chloride Cancelled Carbon Dioxide Cancelled Anion Gap Cancelled BUN Cancelled Creatinine Cancelled Est GFR (CKD-EPI 2020) Cancelled Glucose Cancelled Calcium Cancelled Total Bilirubin Cancelled AST Cancelled ALT Cancelled Alkaline Phosphatase Cancelled Total Protein Cancelled Albumin Cancelled TSH Cancelled Ethyl Alcohol Cancelled PAWSS Have you Been Recently Intoxicated or Drunk Within the Last 30 days?: No Have you Ever Experienced Previous Episodes of Alcohol Withdrawal?: No Have you ever Experienced Withdrawal Seizures?: No Have you ever Experienced Delirium Tremens(DT)s?: No Have you ever undergone Alcohol Rehabilitation Treatment (i.e, inpt ot outpatient treatment programs)?: No Have you ever Experienced Blackouts?: No Have you ever Combined Alcohol with other Downers within the last 90 days?: No Have you ever Combined Alcohol with any other Substance of Abuse during the last 90 days?: No Positive Blood Alcohol level on Presentation? [PCS.BAL]: No Evidence of Increased Autonomic Activity (i.e. HR>120, tremor, sweating, agitation, nausea)?: No Result: 0
== END 2022-10-23 12:44 | disposition home or self-care (01) ==
PROVIDERS: Emergency Provider Physician Assistant; PCP Student in an Organized Health Care Education/Training Program
DX: S06.0X0A Concussion without loss of consciousness, initial encounter (principal); S16.1XXA Strain of muscle, fascia and tendon at neck level, initial encounter; W18.39XA Other fall on same level, initial encounter
CPT/HCPCS: 36415; 80053; 99284; 70450; 72125; 80320; 84443; 85025

== ENCOUNTER 2022-10-27 01:37 | Outpatient (CLI) | payer OTHER, SELFPAY ==
[2022-10-27 10:00] LABS: Abs Immature Grans 0.03 10^3/uL (0.0-0.06); Absolute Basophil Count 0.05 10^3/uL (0.0-0.2); Absolute Eosinophil Count 0.13 10^3/uL (0.0-0.7); Absolute Lymphocyte Count 2.97 10^3/uL (1.2-3.4); Absolute Monocyte Count 0.47 10^3/uL (0.1-0.8); Absolute Neutrophil Count 2.94 10^3/uL (1.2-6.7); Basophils % 0.8; HCT 46.7 % (40.0-50.0); HGB 15.5 g/dL (13.5-17.5); Immature Grans % 0.5; Lymphocytes % 45.1; MCH 28.2 pg (27.0-33.0); MCHC 33.2 % (32.0-36.0); MCV 85 fL (80-95); MPV 9.4 fL (8.0-11.0); Monocytes % 7.1; Neutrophils % 44.5; Platelet Count 344 10^3/uL (130-400); RDW 12.4 % (11.8-14.1); RDW-SD 37.9 fL; WBC 6.59 10^3/uL (4.4-10.8)
[2022-10-27 10:24] LABS: Hemoglobin A1C 5.4 % (<5.7)
[2022-10-27 10:28] LABS: ALT 117 U/L (16-63); AST 58 U/L (15-37); Albumin 4.5 g/dL (3.4-5.0); Alkaline Phosphatase 58 U/L (46-116); Anion Gap 8.1 mmol/L (3-11); BUN 14 mg/dL (7-18); Bilirubin, Direct 0.1 mg/dL (0.0-0.2); Bilirubin, Total 0.5 mg/dL (0.2-1.0); CO2 28.9 mmol/L (21.0-32.0); CREATININE 0.9 mg/dL (0.70-1.30); Calcium 8.9 mg/dL (8.5-10.1); Chloride 103 mmol/L (98-107); Estimated GFR 123.07 (mL/min/1.73m2); Glucose 100 mg/dL (74-106); Potassium 4.4 mmol/L (3.5-5.1); Sodium 140 mmol/L (136-145)
[2022-10-27 10:41] LABS: Calculated LDL 112 mg/dL (<100); Cholesterol 198 mg/dL (<200); HDL Cholesterol 38 mg/dL (40-60); Triglyceride 243 mg/dL (<150)
[2022-10-30 13:05] LABS: IgA 172 mg/dL (85-499); Interpretation (See Note); Tissue Transglutaminase IgA <1.2 U/mL (<4.0)
== END 2022-10-27 01:38 | disposition home or self-care (01) ==
LOC: LBO 01:38
PROVIDERS: PCP Student in an Organized Health Care Education/Training Program; Visit Provider Student in an Organized Health Care Education/Training Program
DX: K52.9 Noninfective gastroenteritis and colitis, unspecified (principal); K58.9 Irritable bowel syndrome, unspecified; R19.7 Diarrhea, unspecified; R71.8 Other abnormality of red blood cells; R73.09 Other abnormal glucose; E87.8 Other disorders of electrolyte and fluid balance, not elsewhere classified; Z91.89 Other specified personal risk factors, not elsewhere classified; R10.84 Generalized abdominal pain; Z83.79 Family history of other diseases of the digestive system; R74.01 Elevation of levels of liver transaminase levels; Z13.220 Encounter for screening for lipoid disorders
CPT/HCPCS: 36415; 80048; 80061; 80076; 82784; 83516; 83036; 85025

== ENCOUNTER 2024-06-07 19:19 | Emergency (ER) | payer BC, SELFPAY ==
[2024-06-07 19:22] VITALS: BP 137/96; PULSE 80; RESP 15; TEMP 36.3; O2SAT 98
--- NOTE | 2024-06-07 19:30 | DI.RAD_ITS ---
Exam(s) XR LUMBAR SPINE COMPLETE EXAM: XR LUMBAR SPINE COMPLETE CLINICAL HISTORY: back Pain, Right radiculopathy. TECHNIQUE: 2D digital imaging was performed. Five views. COMPARISON: No exams were available for comparison FINDINGS: BONES: No fracture or destructive lesion. Vertebral body heights are maintained. No facet hypertro phy identified . The SI joints appear normal. DISKS: Intervertebral disc spaces are maintained. Minimal spurring at the L 5 S1 level. ALIGNMENT: Lumbar spinal alignment is within normal limits. SOFT TISSUE: Normal. IMPRESSION: Minimal degenerative changes at L5-S1. DATA REPOSITORY: RADIATION DOSE DELIVERED:
--- NOTE | 2024-06-07 19:51 | W.ED.GENAD ---
Discharge Plan Disposition Patient Disposition: Home Condition: Stable Discharge Details Clinical Impression: Back pain of lumbosacral region with sciatica Primary Care Provider: Halle Daugherty ED Provider: Abby Nixon Home Meds and New Rx's Prescriptions: New lidocaine 5 % adhesive patch,medicated 1 patch topical DAILY Qty: 15 0RF Rx Instructions: leave on most painful area for up to 12 hrs cyclobenzaprine 10 mg tablet 10 mg PO TID PRN (Reason: muscle spasm) Qty: 10 0RF Rx Instructions: Take 1 tablet orally up to 3 times daily as needed for muscle spasm. No Action buspirone 7.5 mg tablet 7.5 mg PO BID Qty: 60 1RF Rx Instructions: Try daily x2 days, then BID; May try 2 tabs 2/day week 2 .. call PCP acetaminophen 650 mg tablet extended release 1,300 mg PO Q12H PRN (Reason: pain) Discharge Instructions Instructions: Sciatica Exercises, Low Back Pain ED, Sciatica ED Additional Instructions: Preliminary x-rays are within normal limits. I do believe that you have sciatica which is a pulled back muscle that is putting strain on your sciatica nerve. Please use the muscle relaxers as directed, use lidocaine patches as directed. Please take Tylenol or Ibuprofen with food every 4-6 hours as needed for pain and swelling. Alternate ice and heat Return to the ER for any loss of bowel or bladder control, numbness in your groin area or your rectal area problems urinating or any concerns. Follow up with primary care provider in 3-5 days. Return to ED sooner if any worsening or concerns. At this time the official report for the x-rays will be pending, we will call you if any abnormality returns once the official x-ray is read. Referrals: Halle Daugherty DO [Primary Care Provider] - 5 days HPI General Mode of arrival: ambulatory. Date/Time Provider Initiated Documentation: 06/07/24 19:37. Limitations to Documentation: no limitations. Information obtained by: patient, RN notes reviewed and old records reviewed. HPI Narrative: 23-year-old male presents to the ER with a chief complaint of stabbing lower back pain which began this afternoon while doing increased walking. He states that it came on suddenly radiates down to his right leg and thigh. He reports that his right leg continues to buckle. No history of spine surgeries. Denies any loss of bowel or bladder control numbness or tingling or saddle anesthesia. He did not take any medications prior to arrival. Related Data Home Medications ?Medication ?Instructions ?Recorded ?Confirmed acetaminophen 650 mg 1,300 mg PO Q12H PRN pain 10/27/22 06/07/24 tablet,extended release buspirone 7.5 mg tablet 7.5 mg PO BID #60 tabs 08/03/23 06/07/24 cyclobenzaprine 10 mg tablet 10 mg PO TID PRN muscle spasm #06/07/24 tabs lidocaine 5 % topical patch 1 patch topical DAILY #15 ea 06/07/24 Previous Rx's ?Medication ?Instructions ?Recorded buspirone 7.5 mg tablet 7.5 mg PO BID #60 tabs 08/03/23 cyclobenzaprine 10 mg tablet 10 mg PO TID PRN muscle spasm #10 06/07/24 tabs lidocaine 5 % topical patch 1 patch topical DAILY #15 ea 06/07/24 Allergies Allergy/AdvReac Type Severity Reaction Status Date / Time No Known Allergies Allergy Verified 06/07/24 19:26 General Stated Complaint: Nk/Back Pain KIA: 3 Review of Systems All systems reviewed & are unremarkable except as noted in HPI and below Musculoskeletal Musculoskeletal: Reports back pain and Reports radiating pain into limb Exam Narrative Exam Narrative: Constitutional: Alert and oriented x3. Appears stated age. Normal body habitus. Head: Normocephalic, no trauma. Eyes: Pupils PERRL, Red reflex noted, EOM's intact. Eyelids symmetrical without lesions, discharge, or swelling. ENT: Bilateral TM's WNL, External ear normal to inspection, no mastoid TTP, swelling, or erythema, Nasal turbinates WNL, no nasal discharge. Normal dentition, Posterior pharynx WNL, no exudate. Chest: RRR, Normal S1, S2, distal pulses intact. Resp: Lungs clear to auscultation bilaterally, no wheezes, rales, or rhonchi. Abdomen: Soft, non-distended, Normoactive bowel sounds all 4 quads. Musculoskeletal: L up for L5 tenderness with palpation no crepitus or step-off, moves all 4 extremities without difficulty. Skin: No suspicious rashes or lesions. Capillary refill less than 2 sec. Neurologic: Cranial nerves II-XII intact. Alert and oriented x 3. Motor: No deficits noted. Sensory: Intact bilaterally all 4 extremities. Hematologic/Lymphatic: No ecchymosis, no lymphadenopathy. Back/Spine/Pelvis Cervical Spine: cervical ROM normal Thoracic/Lumbar Spine: lumbar spinal tenderness (L4-L5) Course Vital Signs Vital signs: Vital Signs Temperature 36.3 C L 06/07/24 19:22 Pulse 80 06/07/24 19:22 Respiratory Rate 15 06/07/24 19:22 Blood Pressure 137/96 H 06/07/24 19:22 Pulse Oximetry 98 06/07/24 19:22 Temperature 36.3 C L 06/07/24 19:22 Temperature Source Tympanic 06/07/24 19:22 Pulse 80 06/07/24 19:22 Respiratory Rate 15 06/07/24 19:22 Respiratory Effort Normal 06/07/24 19:25 Blood Pressure 137/96 H 06/07/24 19:22 Blood Pressure Position Sitting 06/07/24 19:22 Pulse Oximetry 98 06/07/24 19:22 Oxygen Delivery Method Room Air 06/07/24 19:22 Oxygen Flow Rate 0 06/07/24 19:22 Pain Level 7 06/07/24 19:22 Medical Decision Making 23-year-old male presents to the ER with a chief complaint of stabbing lower back pain which began this afternoon while doing increased walking. He states that it came on suddenly radiates down to his right leg and thigh. He reports that his right leg continues to buckle. No history of spine surgeries. Denies any loss of bowel or bladder control numbness or tingling or saddle anesthesia. He did not take any medications prior to arrival. L-spine x-ray ordered, IM Toradol and IM Norflex and lidocaine patch. No obvious abnormality noted on the L-spine x-rays according to myself. Awaiting official V rad read. Will give patient Flexeril lidocaine patches and discharged home with strict return instructions and follow-up care. This text was generated using [employer]ation system, please disregard any oddities of phrase or misspellings. Quality:SDOH Health Related Social Needs: No Data to Display PFSH All Active Problems (Updated 06/07/24 @ 21:19 by Abby Nixon NP) Back pain of lumbosacral region with sciatica (Acute) GERD (gastroesophageal reflux disease) (Chronic) [facility] Gastro Note 03/20/23 Hypertriglyceridemia (Acute) w/ acceptable chol, albeit very low HDL Wart of hand (Acute) left 4th finger.. raised .. non-tender to palp but pain (+) with use Inflamed skin tag (Acute) Irritated, inflamed @ neck (newly dev!) Skin tags, multiple acquired (Acute) Hx, but many new ones this year @ neck, irritated Abdominal bloating with cramps (Acute) Family history of inflammatory bowel disease (Acute) Fa with IBS-D? IBD? Fa had colo as a young man, [ ] Path? Generalized postprandial abdominal pain (Acute) Mild now, Hx painful episodes with diarrhea.. IBS (irritable bowel syndrome) (Chronic) as a teen, returned last Fall (2021) .. with Hx Fa with IBS-D. ALEXANDRA (obstructive sleep apnea) (Chronic) Medical History History of ear infections as a child Lipoma of extremity left foot/ankle Ganglion cyst of left foot ? cyst on dorsum of foot _ ORTHO 04/12 Appendicitis, acute (~04/2015) ruptured with abscess formation and drain placement and antibiotic rx Raynauds disease eval and told not raynaud's -related to light bite injury Surgical History H/O excision of mass (~2020) Foot mass/growth removal: Dr. Thomas Status post excisional biopsy (10/05/20) Lipoma of left foot/ankle Tonsillectomy and adenoidectomy (~2010) Dr. Lamar Appendectomy (~2014) with rupture and postoperative infection adn IV antibitics and percutaneous drain placemtn Family History Mother Healthy adult Father Essential hypertension Hyperlipidemia Maternal Aunt Substance use disorder Other Breast cancer Social History Smoking/Tobacco Use Status: Never Smoking risk assessment performed?: Yes Alcohol Intake: current Alcohol Intake frequency: a few times a month Alcohol type: beer Drug use: Never Substance use type: does not use Counseling given: No Adopted: No Caregiver/Support person: No Foster care: No Household members: family Housing: house Number of Children: 0 Communication Needs: None Education Level: college Details: bachelor's degree Do you need help understanding health information?: Never current occupation: Patient [employer] Pets and animals: Yes Pets and animals: dog(s) and hamster(s) Sexually active: No Do you think of yourself as: straight/heterosexual Current gender identity: male What is your relationship status?: never How often do you talk on the phone with friends or family?: once per week How often do you get together with friends or relatives?: once per week Do you belong to any clubs or organized social groups?: no Panel score (0-1 are the most socially isolated patients): 0 What type of physical activity do you participate in: none Nelsy/Christianity: Yarsani Special nelsy needs: No Seatbelt use: always Helmet use: Yes Helmet use: always 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 Do you feel safe at home: Yes Do you feel safe in your relationship?: Yes PAWSS Have you Been Recently Intoxicated or Drunk Within the Last 30 days?: No Have you Ever Experienced Previous Episodes of Alcohol Withdrawal?: No Have you ever Experienced Withdrawal Seizures?: No Have you ever Experienced Delirium Tremens(DT)s?: No Have you ever undergone Alcohol Rehabilitation Treatment (i.e, inpt ot outpatient treatment programs)?: No Have you ever Experienced Blackouts?: No Have you ever Combined Alcohol with other Downers within the last 90 days?: No Have you ever Combined Alcohol with any other Substance of Abuse during the last 90 days?: No Positive Blood Alcohol level on Presentation? [PCS.BAL]: No Evidence of Increased Autonomic Activity (i.e. HR>120, tremor, sweating, agitation, nausea)?: No Result: 0
[2024-06-07] MEDS: Orphenadrine 60 MG/2 ML VIAL IM (20:00)
[2024-06-07] MEDS: Ketorolac 30 MG/ML VIAL IM (20:00)
[2024-06-07] MEDS: Lidocaine 5% Patch 1 PATCH TP (20:00)
[2024-06-07] MEDS: Cyclobenzaprine 10 MG TAB, 3 TABS/BTL PO (21:29)
[2024-06-07 21:36] VITALS: BP 137/84; PULSE 68; RESP 18; TEMP 36.9; O2SAT 98
--- NOTE | 2024-06-07 22:12 | DI.VRAD_ITS ---
PROCEDURE INFORMATION: Exam: XR Lumbosacral Spine Exam date and time: 06/07/2024 7:59 PM Age: 23 years old Clinical indication: Low back pain; Patient HX: Back pain, right radiculopathy TECHNIQUE: Imaging protocol: Radiologic exam of the lumbosacral spine. Views: 4 or 5 views. COMPARISON: CR XR lumbar spine complete 08/14/2018 11:24 AM FINDINGS: Bones/joints: Frontal, lateral, and bilateral oblique views of the lumbar spine are submitted with a coned-down lateral view of the lumbosacral junction. There are 5 [id number] lumbar vertebral bodies. No acute fracture or malalignment is seen. There is mild loss of disc height at L5-S1 with posterior osteophytic ridging. Soft tissues: No gross focal soft tissue abnormality is demonstrated. IMPRESSION: No acute fracture or dislocation seen in the lumbar spine. Mild discogenic degeneration at L5-S1. Please note that the neural foramina and spinal nerve roots are not well evaluated by plain film imaging. MRI could be obtained for additional evaluation, as clinically warranted. Dictated and Authenticated by: Sundar Pena MD. Ordering:DEVEN Mora MD
== END 2024-06-07 21:36 | disposition home or self-care (01) ==
PROVIDERS: Emergency Provider Registered Nurse Emergency; PCP Student in an Organized Health Care Education/Training Program
DX: M54.41 Lumbago with sciatica, right side (principal)
CPT/HCPCS: 96372; 99284; J2360; 72110; 99283; J1885

== ENCOUNTER 2025-07-30 01:38 | Outpatient (CLI) | payer BC, SELFPAY ==
[2025-07-30 11:10] LABS: Abs Immature Grans 0.05 10^3/uL (0.0-0.06); HCT 45.9 % (40.0-50.0); HGB 15.6 g/dL (13.5-17.5); Immature Grans % 0.7 %; MCH 27.9 pg (27.0-33.0); MCHC 34.0 % (32.0-36.0); MCV 82 fL (80-95); MPV 9.2 fL (8.0-11.0); Platelet Count 335 10^3/uL (130-400); RBC 5.59 10^6/uL (4.36-5.78); RDW 12.4 % (11.8-14.1); RDW-SD 37.2 fL; WBC 7.21 10^3/uL (4.4-10.8)
[2025-07-30 11:35] LABS: Hemoglobin A1C 5.3 % (<5.7)
[2025-07-30 12:04] LABS: ALT 76 U/L (16-63); AST 30 U/L (15-37); Albumin 4.2 g/dL (3.4-5.0); Alkaline Phosphatase 56 U/L (46-116); Anion Gap 8.5 mmol/L (3-11); BUN 10 mg/dL (7-18); Bilirubin, Total 0.5 mg/dL (0.2-1.0); CO2 26.5 mmol/L (21.0-32.0); Calcium 8.3 mg/dL (8.5-10.1); Chloride 103 mmol/L (98-107); GGT 66 U/L (15-85); Glucose 89 mg/dL (74-106); Potassium 4.1 mmol/L (3.5-5.1); Sodium 138 mmol/L (136-145); TSH 2.74 uIU/mL (0.36-3.74); Total Protein 7.9 g/dL (6.4-8.2)
[2025-07-30 12:42] LABS: Cholesterol 203 mg/dL (<200); HDL Cholesterol 37 mg/dL (>or=40); Vitamin B12 338 pg/mL (193-986); Vitamin D 25 Total 11 ng/mL (30-100)
[2025-07-30 12:43] LABS: Folate > 20.0 ng/mL (8.6-20.0)
== END 2025-07-30 01:39 | disposition home or self-care (01) ==
LOC: LBO 01:38
PROVIDERS: Visit Provider Family Medicine
DX: K58.9 Irritable bowel syndrome, unspecified (principal); R74.01 Elevation of levels of liver transaminase levels; E66.813 Obesity, class 3; Z68.41 Body mass index [BMI] 40.0-44.9, adult; E78.1 Pure hyperglyceridemia
CPT/HCPCS: 36415; 80053; 80061; 82306; 82607; 82746; 82977; 83036; 84439; 84443; 85025

== ENCOUNTER 2025-09-07 10:26 | Outpatient (CLI) | payer BC, SELFPAY ==
[2025-09-07 16:57] LABS: Glucose Negative (Negative)
[2025-09-08 18:17] LABS: PSA, Diagnostic 0.8 ng/mL (<=2.5)
== END 2025-09-07 10:27 | disposition home or self-care (01) ==
LOC: LBO 10:26
PROVIDERS: Visit Provider Family Medicine
DX: R39.15 Urgency of urination (principal)
CPT/HCPCS: 36415; 81003; 84153